=== PATIENT | female | born 1980 | race Caucasian/White ===

== ENCOUNTER 2020-08-10 09:08 | Emergency (ER) | payer OTHER, SELFPAY ==
[2020-08-10 09:11] VITALS: BP 165/92; PULSE 116; RESP 16; TEMP 35.9; O2SAT 99; BMI 27.3
--- NOTE | 2020-08-10 09:21 | RAD_ITS ---
STUDY: X-RAY CHEST REASON FOR EXAM: Female, 40 years old. chest pain TECHNIQUE: COMPARISON: None. FINDINGS: The lungs are clear and expanded. There is no demonstrated pleural abnormality. Normal size heart. Normal mediastinum and justina. Normal visualized pulmonary arteries. Normal visualized aortic arch and descending thoracic aorta. Normal visualized thoracic spine. Normal visualized ribs, clavicles, and shoulders. There is no demonstrated abnormality of the visualized soft tissue structures of the upper abdomen. RAD/Chest 1 View (Portable) IMPRESSION: Normal x-ray examination of the chest. Electronically Signed: Bill Schaeffer, at 11:59 EDT Tel , Service support ,
--- NOTE | 2020-08-10 09:21 | EKG12_ITS ---
Test Reason : POSTCARDIOVERSION Blood Pressure : / mmHG Vent. Rate : 131 BPM Atrial Rate : 131 BPM P-R Int : 130 ms QRS Dur : 074 ms QT Int : 294 ms P-R-T Axes : 034 048 008 degrees QTc Int : 434 ms Sinus tachycardia Otherwise normal ECG Confirmed by TRUMAN GUIDO, CARLOS ([id number]), acquisitions editor EDIL DONNELLY ([id number]) on 08/12/2020 12:45:00 PM Referred By: JOSI Confirmed By:CARLOS LAUGHLIN MD
--- NOTE | 2020-08-10 09:22 | EDS_ITS ---
HPI History of Present Illness Chief Complaint: Palpitations Narrative Narrative: 40-year-old female with history of palpitations presenting for palpitations. She states since about 6:30 AM that her heart has been racing. She states that when she tries to walk she has to move very slowly because her heart goes even faster. She is not having any pain in her chest. She is not had fever, cough, chills, change in taste or smell. She states she is otherwise healthy. No history of DVT/PE. PFSH PFSH Home Medications Control 08/10/20 [History Last Taken Unknown] metoprolol succinate 25 mg PO DAILY #30 tab 08/10/20 [Rx Last Taken Unknown] Allergy/AdvReac Type Severity Reaction Status Date / Time No Known Allergies Allergy Verified 08/10/20 09:10 Social History Smoking Status: Former smoker ROS ROS ED Constitutional Constitutional ED: Denies chills, fever(s) or subjective Eyes Eyes: Denies none or change in vision ENT ENT ED: Denies ear pain, rhinorrhea or sore throat Cardiovascular Cardiovascular: Reports palpitations and racing heartbeat; Denies chest pain Respiratory/Chest Respiratory/Chest: Denies cough or dyspnea Gastrointestinal Gastrointestinal: Denies abdominal pain, nausea or vomiting Genitourinary Genitourinary ED: Denies dysuria or hematuria Musculoskeletal Musculoskeletal: Denies arthralgias or myalgias Integumentary Denies abscess or rash Neurologic Neurologic: Denies headache(s) or weakness Psychiatric Psychiatric: Denies anxiety or depression EXAM Physical Exam Const Vital Signs: 08/10/20 09:11 08/10/20 09:21 08/10/20 11:34 Temperature 96.6 F L Temperature Source Oral Pulse Rate 116 H 101 H Respiratory Rate 16 18 Respiratory Effort Respiratory Pattern Blood Pressure 165/92 H Blood Pressure Mean 116 Pulse Ox 99 97 Oxygen Delivery Method Room Air Nasal Cannula Room Air Oxygen Flow Rate (L/min) 3 08/10/20 12:23 08/10/20 12:30 Temperature Temperature Source Pulse Rate 103 H Respiratory Rate 19 H Respiratory Effort Normal Respiratory Pattern Normal Blood Pressure 134/92 H Blood Pressure Mean Pulse Ox 98 Oxygen Delivery Method Oxygen Flow Rate (L/min) Positive well nourished and well developed General Appearance ED: well developed HEENT Reports moist mucous membranes normocephalic and atraumatic Eyes PERRL and EOMs intact bilaterally Resp normal respiratory effort Effort and Inspection: respiratory distress Cardio regular rate and regular rhythm GI normal to inspection, nondistended, normoactive bowel sounds Extremity normal to inspection General Extremety ED: Negative for edema or tenderness General Extremity: Negative for edema Neuro oriented x3 Sensorium / Orientation: awake and alert Psych mental status grossly normal Attitude: No agitated Skin no rashes or lesions noted and no wounds Heart Score History: Slightly/Non-Suspicious ECG: Normal Age: </= 45 years Risk Factors: No Risk Factors Score: 0 MDM MDM MDM Narrative Medical decision making narrative: Patient presenting with palpitations which she states she is had in the past however they have never been this bad and never lasted this long. Patient is found to be in SVT with a rate of 199 bpm on my interpretation of her EKG. Lab work was drawn and patient was given IV fluids. 6 of adenosine was given however she required a second dose of 12 mg of adenosine to break the SVT. She feels much improved. Repeat EKG shows sinus tachycardia at 131 bpm. Her heart rate did steadily slow down when she calmed down. Her lab work-up was normal. Troponin negative. D-dimer negative. TSH is normal. Chest x-ray one-view portable on my interpretation shows no acute cardiopulmonary process. Patient was discussed with Dr. Argueta who recommended placing the patient on 25 mg of metoprolol extended release. Patient will be discharged home in stable condition. She can return precautions. Impression: 1. SVT Lab Data Labs: Laboratory Results - last 24 hr 08/10/20 08/10/20 08/10/20 09:50 09:50 09:50 WBC 8.9 RBC 4.40 Hgb 13.6 Hct 40.5 MCV 92.0 MCH 30.9 MCHC 33.6 RDW Std Deviation 41.4 RDW Coeff of [place]anto 12.2 Plt Count 291 MPV 9.7 Immature Gran % (Auto) 0.400 Neut % (Auto) 74.5 H Lymph % (Auto) 18.3 L Stanton % (Auto) 5.2 Eos % (Auto) 0.9 Baso % (Auto) 0.7 Absolute Neuts (auto) 6.7 Absolute Lymphs (auto) 1.63 Nucleated RBC % 0 D-Dimer Quant (PE/DVT) <= 0.27 Sodium 137 Potassium 3.8 Chloride 106 Carbon Dioxide 24.0 Anion Gap 7 BUN 11 Creatinine 0.95 Estim Creat Clear Calc 86.83 Est GFR (MDRD) Af Amer 84 Est GFR (MDRD) Non-Af 70 BUN/Creatinine Ratio 11.5 Glucose 132 H Calcium 8.9 Troponin I High Sens 26.2 TSH Serum , Qual 08/10/20 08/10/20 09:50 09:50 WBC RBC Hgb Hct MCV MCH MCHC RDW Std Deviation RDW Coeff of [place] Plt Count MPV Immature Gran % (Auto) Neut % (Auto) Lymph % (Auto) Stanton % (Auto) Eos % (Auto) Baso % (Auto) Absolute Neuts (auto) Absolute Lymphs (auto) Nucleated RBC % D-Dimer Quant (PE/DVT) Sodium Potassium Chloride Carbon Dioxide Anion Gap BUN Creatinine Estim Creat Clear Calc Est GFR (MDRD) Af Amer Est GFR (MDRD) Non-Af BUN/Creatinine Ratio Glucose Calcium Troponin I High Sens TSH 1.52 Serum , Qual NEGATIVE Radiography Diagnostic Testing: Radiology Impression Chest X-Ray 08/10/20 09:21 IMPRESSION: Normal x-ray examination of the chest. Electronically Signed: Bill Schaeffer, at 11:59 EDT Tel , Service support , Discharge Plan Triage Chief Complaint: Palpitations ED Provider: Miguelangel Rodriguez Dx/Rx/DC Orders Instructions: ED Understanding Supraventricular Tachycardia (SVT) Prescriptions: New metoprolol succinate 25 mg tablet extended release 24 hr 25 mg PO DAILY Qty: 30 RF: 0 No Action Control RF: 0 Primary Care Provider: Jurgen Schaefer Referrals: Jurgen Schaefer MD [Primary Care Provider] - Disposition Disposition: Home, Self Care Discharge Date/Time: 08/10/20 12:31
--- NOTE | 2020-08-10 09:34 | NURSING ---
NO OLD EKGS
[2020-08-10] MEDS: Adenosine 6 MG/2 ML Syringe IV (09:42)
[2020-08-10] MEDS: Adenosine 6 MG/2 ML Syringe 12 MG IV (09:46)
[2020-08-10 10:02] LABS: Absolute Lymphocyte Count 1.63 X10^3/uL (0.83-4.51); Absolute Neutrophil Count 6.7 X10^3/uL (2.0-7.7); Basophil# 0.06 X10^3/uL; Basophil% 0.7 % (0-1); Eosinophil# 0.08 X10^3/uL; Eosinophils% 0.9 % (0-5); Hematocrit 40.5 % (37-47); Hemoglobin 13.6 g/dL (12.0-15.0); Lymphocyte # 1.63 X10^3/ul (0.83-4.51); Lymphocyte % 18.3 % (19-41); Mean Corp Hgb Conc 33.6 g/dL (32-36); Mean Corpuscular Hgb 30.9 pg (27.0-32.0); Mean Platelet Vol. 9.7 fl (6.2-12.0); Monocyte# 0.46 X10^3/uL; Monocyte% 5.2 % (0-10); NRBC Flagged by Analyzer 0 % (0-5); Neutrophil # 6.66 X10^3/uL (2.7-7.7); Neutrophil % 74.5 % (47-70); Platelet Count 291 K/mm3 (150-450); RBC Distribution Width CV 12.2 % (11.6-14.6); RBC Distribution Width SD 41.4 fl (35.1-43.9); White Blood Count 8.9 K/mm3 (4.4-11.0)
[2020-08-10 10:19] LABS: Anion Gap 7 (5-15); BUN 11 mg/dL (7-18); BUN/Creat Ratio 11.5 RATIO (10-20); Calcium,Total 8.9 mg/dL (8.5-10.1); Chloride 106 mmol/L (98-107); Creatinine, Serum 0.95 mg/dL (0.55-1.02); EST Glomerular Filtration Rate 70 mL/min (>60); Est Glom Filt Rate - Afr Amer 84 mL/min (>60); Estimated Creatinine Clearance 86.83 ml/min; Glucose 132 mg/dL (74-106); Potassium 3.8 mmol/L (3.5-5.1); Sodium Level 137 mmol/L (136-145); Troponin-I HS 26.2 pg/mL (3.0-53.7)
[2020-08-10 10:20] LABS: Internal QC Validated? YES +Cl - CLEAR BKGD; Pregnancy, Serum, hCG Quali. NEGATIVE Negative
[2020-08-10 10:21] LABS: D-Dimer Quantitative (DVT/PE) <= 0.27 FEU/ug/m (0.27-0.49)
--- NOTE | 2020-08-10 10:33 | EKG12_ITS ---
Test Reason : Blood Pressure : / mmHG Vent. Rate : 199 BPM Atrial Rate : 202 BPM P-R Int : 000 ms QRS Dur : 062 ms QT Int : 228 ms P-R-T Axes : 000 031 -01 degrees QTc Int : 414 ms Supraventricular tachycardia Nonspecific ST abnormality Abnormal ECG Confirmed by TRUMAN GUIDO, CARLOS ([id number]), news editor EDIL DONNELLY ([id number]) on 08/12/2020 12:45:14 PM Referred By: [place] Confirmed By:CARLOS LAUGHLIN MD
[2020-08-10 11:33] LABS: Thyroid Stim Hormone (TSH) 1.52 uIU/mL (0.358-3.74)
[2020-08-10 11:34] VITALS: PULSE 101; RESP 18; O2SAT 97
[2020-08-10 12:30] VITALS: BP 134/92; PULSE 103; RESP 19; O2SAT 98
== END 2020-08-10 12:31 | disposition home or self-care (01) ==
PROVIDERS: Emergency Provider Student in an Organized Health Care Education/Training Program; PCP Family Medicine
DX: I47.1 Supraventricular tachycardia (principal); Z87.891 Personal history of nicotine dependence; Z79.899 Other long term (current) drug therapy
CPT/HCPCS: 71045; 80048; 84443; 84484; 84703; 85025; 85379; 93005; 96374; 96376; 99284; A4216; J0153

== ENCOUNTER → 2020-10-24 16:08 | Outpatient (CLI) | payer OTHER, SELFPAY | PROVIDERS: PCP Nurse Practitioner Family; Referring Provider Physician Assistant Surgical; Visit Provider Physician Assistant Surgical | DX: Z11.52 Encounter for screening for COVID-19 (principal) | CPT/HCPCS: 87635; U0005; U0003 ==

== ENCOUNTER → 2020-11-01 07:48 | Outpatient (CLI) | payer OTHER, SELFPAY ==
--- NOTE | 2020-11-01 07:51 | ECHOD_ITS ---
Reason For Study: ARRHYTHMIA Procedure This was a 2D Doppler, Color Flow transthoracic echocardiogram. The exam was of adequate technical quality. Exam performed in department. Left Ventricle Normal LV size. Left ventricular systolic function is normal. The estimated ejection fraction is 65 %. Transmitral doppler flow suggestive of impaired relaxation of left ventricle. No regional wall motion abnormalities noted. Right Ventricle Normal RV size. Normal systolic function. Atria Normal left atrium. Normal right atrium. No doppler evidence for ASD. Mitral Valve There is no mitral annular calcification. Normal mitral valve. Trivial mitral valve insufficiency. Tricuspid Valve Normal tricuspid valve. Trivial tricuspid valve insufficiency. Right ventricular systolic pressure estimated to be 21 mmHg. Aortic Valve Trisinus/trileaflet aortic valve. Normal aortic valve. Pulmonic Valve The pulmonic valve is not well visualized. Trivial pulmonic valve insufficiency. Great Vessels Normal sized aortic root. Pericardium/Pleural No pericardial effusion. MMode/2D Measurements & Calculations LVIDd: 4.2 cm IVSd: 0.79 cm Ao root diam: 2.8 cm LVIDs: 2.8 cm LVPWd: 0.72 cm RVDd: 2.7 cm FS: 34.0 % LAV(MOD-bp): 37.2 ml LA A4 area: 14.1 cm2 LA dimension(2D): 3.1 cm LAV(MOD-bp) Indexed: 18.7 ml/m2 LAV(MOD-sp2): 35.9 ml LAV(MOD-sp4): 35.9 ml RA A4 area: 11.0 cm2 Doppler Measurements & Calculations MV E max jj: 74.9 cm/sec Lat Peak E' Jj: 13.6 cm/sec Med Peak E' Jj: 8.8 cm/sec MV A max jj: 99.3 cm/sec E/E' lat: 5.5 E/E' med: 8.5 MV E/A: 0.75 Ao V2 max: 113.0 cm/sec LV V1 max: 91.4 cm/sec PA V2 max: 94.1 cm/sec Ao max P.1 mmHg LV V1 max P.3 mmHg TR max jj: 221.9 cm/sec TR max P.7 mmHg ECHO/Echo Complete Interpretation Summary Left ventricular systolic function is normal. The estimated ejection fraction is 65 %. Trivial mitral valve insufficiency. Trivial tricuspid valve insufficiency. Trivial pulmonic valve insufficiency. Right ventricular systolic pressure estimated to be 21 mmHg. Transmitral doppler flow suggestive of impaired relaxation of left ventricle Ordering Physician: Nick Argueta Referring Physician: Maranda Ram Performed By: Desirae Olson, MIGUEL, RVT
== END ==
PROVIDERS: PCP Nurse Practitioner Family; Visit Provider Internal Medicine Cardiovascular Disease
DX: R00.2 Palpitations (principal); I47.1 Supraventricular tachycardia
CPT/HCPCS: 93306